=== PATIENT | female | born 1985 | race Caucasian/White ===

== ENCOUNTER 2016-07-26 23:12 | Emergency (ER) | payer OTHER ==
[~2016-07-26 23:12] MED LIST: ANTIDEPRESSANT; BACTRIM DS TABL1 TAB PO; BIAXIN PO; CATAFLAM50 MG PO; CIPRO PO; COMPAZINE10 M1 PO; DICLOFENAC PO; FIORICET 50-301 EACH PO; FLAGYL PO; IMITREX; KCL PO; KEFLEX PO; KEFLEX500 MG PO; NEURONTIN300 MG PO; NO MEDICATIONS; PREDNISONE10 MG PO; PRENATAL MULTIV1 TA1; PYRIDIUM PO; ROBITUSSIN ALL118 ML PO; SEE BELOW; TOPAMAX; VICODIN 5/500 T1 TAB PO; VITAMIN B-1000 MCG/1 IJ
[2016-07-26 23:17] LABS: URINE SOURCE CLEAN CATCH
[2016-07-26 23:20] LABS: URINE APPEARANCE CLEAR; URINE BILIRUBIN NEG (NEG); URINE BLOOD TRACE-INTACT (NEG); URINE COLOR YELLOW; URINE GLUCOSE NEG (NORM); URINE KETONE NEG (NEG); URINE LEUKOCYTE ESTERASE 1+ (NEG); URINE NITRATE NEG (NEG); URINE PROTEIN NEG (NEG); URINE SPECIFIC GRAVITY <=1.005 (1.003-1.035); URINE UROBILINOGEN 0.2 MG/DL (NORM)
[2016-07-26 23:21] LABS: MICRO INDICATED? YES
[2016-07-26 23:22] LABS: CULTURE INDICATED? NO; URINE BACTERIA NEG (NEG); URINE RBC 0-2 /[HPF] (0-2)
[2016-07-26 23:23] LABS: URINE MUCUS PRESENT; URINE SQUAMOUS EPITHELIAL CELL OCCAS /[HPF]; URINE TRANSITIONAL EPI CELLS FEW /[HPF]
[2016-07-26 23:30] LABS: AMPHETAMINE POS (NEG); BARBITURATES NEG (NEG); BENZODIAZEPINES NEG (NEG); COCAINE NEG (NEG); MARIJUANA NEG (NEG); OPIATES NEG (NEG); TRICYCLIC ANTIDEPRESSANTS NEG (NEG); U METHADONE NEG (NEG)
== END 2016-07-26 23:53 | disposition home or self-care (01) ==
LOC: SED 23:12
PROVIDERS: Emergency Medicine
DX: F15.10 Other stimulant abuse, uncomplicated (principal); Z88.1 Allergy status to other antibiotic agents
CPT/HCPCS: 36415; 80307; 81003; 84703; 96374; 96375; 99283; J1200; J2930